=== PATIENT | female | born 1985 | race African-American/Black ===

== ENCOUNTER 2023-08-02 09:39 | Emergency (ER) | payer OTHER, SELFPAY ==
--- NOTE | ~2023-08-02 | XR_ITS ---
EXAMINATION: XR CHEST CLINICAL INFORMATION: Chest pain COMPARISON: None available. TECHNIQUE: Frontal view of the chest was obtained. FINDINGS: Lungs are well-inflated and clear. Trachea is midline in position. No interstitial disease, consolidation or mass. No pleural effusion or pneumothorax. Cardiac silhouette and pulmonary vessels are normal in size. The mediastinum and jovan have normal contour. The visualized bones and upper abdomen are unremarkable. XR/XR chest 1V IMPRESSION: Lungs have a normal appearance. No acute cardiopulmonary abnormality.
[2023-08-02 10:02] VITALS: BP 121/79; PULSE 63; RESP 16; TEMP 36.4; O2SAT 100; BMI 28.1
--- NOTE | 2023-08-02 10:06 | ECG_ITS ---
Test Reason : CHEST TIGHTNESS Blood Pressure : / mmHG Vent. Rate : 067 BPM Atrial Rate : 067 BPM P-R Int : 172 ms QRS Dur : 076 ms QT Int : 374 ms P-R-T Axes : 067 023 009 degrees QTc Int : 395 ms Normal sinus rhythm Normal ECG No previous ECGs available Referred By: Generic ED Physician Electronically Signed By:Payam Zavala
[2023-08-02 10:32] LABS: IDNOW Serial# 9DB6401D; Influenza A Negative (Negative); Influenza B2 Negative (Negative)
[2023-08-02 10:53] LABS: COVID-19 Test Negative (Negative); IDNOW Serial# 58CA691E
--- NOTE | 2023-08-02 12:08 | ED.GENADULT ---
HPI - General Adult General Chief complaint: Upper Respiratory Symptoms Stated complaint: cold like symptoms Time Seen by Provider: 08/02/23 12:10 Source: patient Mode of arrival: ambulatory Limitations: no limitations History of Present Illness HPI narrative: Patient is a 38 year old assigned female at with no reported medical history presenting to the emergency department today with a cough, headache, and sore throat. Patient states that over the last 1 week she has had a cough, headache, and sore throat. Patient denies any dizziness, lightheadedness, abdominal pain, nausea, vomiting, fever, chills, blurry vision, double vision, loss of vision, chest pain, difficulty breathing, shortness of breath, back pain, night sweats, pain with urination, increased urinary frequency, increased urinary urgency, blood in her urine or stool, syncope or a near syncopal episode, recent trauma or falls, bowel incontinence, bladder incontinence, bowel retention, bladder retention, or any other complaints at this time. Onset (ago): week(s) (1) Severity: mild Relieving factors: none Exacerbating factors: none Associated symptoms: cough Treatments prior to arrival: none Related Data Previous Rx's Medication Instructions Recorded benzonatate 100 mg capsule 100 mg PO BID PRN cough 7 days #14 08/02/23 caps doxycycline hyclate 100 mg tablet 100 mg PO BID 7 days #14 tabs 08/02/23 prednisone 20 mg tablet 20 mg PO DAILY 7 days #7 tabs 08/02/23 Allergies Allergy/AdvReac Type Severity Reaction Status Date / Time morphine Allergy Numbness Verified 08/02/23 10:05 Review of Systems Constitutional: Constitutional: Reports no additional constitutional complaints, Denies chills, Denies fever(s), Reports headache(s) and Denies night sweats Eyes: Eyes: Reports no additional eye complaints, Denies blurry vision, Denies change in vision, Denies diplopia, Denies eye discharge, Denies loss of vision and Denies eye pain ENT: Denies dizziness, Reports headache(s) and Reports sore throat Cardiovascular: Cardiovascular: Reports no additional cardiovascular complaints, Denies chest pain, Denies lightheadedness, Denies Loss of Consciousness and Denies dyspnea Respiratory: Respiratory: Reports no additional respiratory complaints, Reports cough and Denies dyspnea Gastrointestinal: Gastrointestinal: Reports no additional gastrointestinal complaints, Denies abdominal pain, Denies melena, Denies hematochezia, Denies change in bowel habits and Denies change in stool character Genitourinary: Genitourinary: Denies hematuria, Denies urinary frequency, Denies dysuria, Denies urinary incontinence, Denies urinary hesitancy and Denies urinary urgency Musculoskeletal: Musculoskeletal: Reports no additional musculoskeletal complaints, Denies numbness and Denies tingling Neurologic: Denies dizziness, Reports headache(s), Denies loss of vision, Denies numbness and Denies tingling Psychiatric: Psychiatric: Reports no additional psychiatric complaints Endocrine: Endocrine: Reports no additional endocrine complaints Hematologic/Lymphatic: Hematologic/Lymphatic: Reports no additional hematologic/lymphatic complaints Allergic/Immunologic: Allergic/Immunologic: Reports no additional allergic/immunologic complaints PMFSH Past Medical History Attestation statement: The following information was validated with the patient. Source: old records reviewed and nursing notes reviewed Social History Social History Advance Directives: No Advance Directives Information Provided: No Physical Exam ED Vital Signs: Vital Signs - 24 hr 08/02/23 10:02 Temperature 97.5 F Pulse Rate 63 Respiratory Rate 16 Blood Pressure 121/79 Pulse Oximetry 100 Oxygen Delivery Method Room Air BMI result Body Mass Index 28.1 Const General: cooperative, no acute distress, alert and awake Nutritional Appearance: well nourished Orientation/consciousness: patient oriented x3 Limitations: no limitations HENMT Head: Yes normal to inspection and Yes atraumatic Ears: hearing grossly normal bilaterally and external ears normal General nose exam: Normal external nose present, no nasal discharge noted and no epistaxis Face and sinus: Yes normal facial exam, No abrasion and No laceration Mouth: Normal oral and palatal mucosa present, no drooling and no muffled voice Eyes General: appearance normal, both eyes and all related structures Periorbital: periorbital findings normal Eyelids: Yes eyelids normal Conjunctivae: conjunctivae normal Pupils: Equal, round and reactive pupils present EOM: EOMs intact bilaterally Neck Neck: Yes normal visual inspection, Yes full ROM and Yes no lymphadenopathy Chest Chest palpation & inspection: normal inspection of the chest Resp Effort & Inspection: normal respiratory effort and able to speak in complete sentences Auscultation: clear to auscultation bilaterally GI Inspection: Yes normal to inspection Neuro General: patient oriented x3 and moves all extremities Cranial nerves: Yes Equal, round and reactive pupils present Cognition (Neuro): normal cognition Motor exam (neuro): 5/5 motor strength present throughout Sensory Exam: Normal double simultaneous stimulation for sensation Coordination: [id number] test normal Extrem General: Yes normal to inspection, Yes full ROM and Yes capillary refill normal Psych Appearance: grossly normal Mental Status: mental status grossly normal Affect: normal affect Attitude: cooperative Thought process: Normal thought process present Thought content: Normal thought content present Insight: Good insight present (Psych) Medical Decision Making Medical Decision Making [facility] Narrative: Patient is a 38 year old assigned female at with no reported medical history presenting to the emergency department today with a headache, cough, and sore throat. Patient's physical exam was unremarkable. Patient's chest x-ray showed no acute process. Patient's EKG was unremarkable. Patient's COVID-19 and influenza swabs were negative. I explained my physical exam findings as well as all test results to the patient. I answered all questions asked by the patient. I stressed the importance of the patient taking her medication as prescribed. I stressed the importance of the patient following up with her primary care provider. I stressed the importance of the patient returning to the emergency department immediately if her symptoms were to worsen or if she were to develop any dizziness, shortness of breath, difficulty breathing, chest pain, blurry vision, loss of vision, nausea, vomiting, abdominal pain, fever, chills, back pain, or any other complaints. Patient verbalized agreement and understanding with this treatment plan and discharge. Differential Diagnosis Differential Diagnoses: The differential diagnosis associated with the presentation includes Cough URI Walking pneumonia COVID-19 Influenza Admission/Observation Consideration of admission/observation: Escalation of care including admission/observation considered Patient would have been admitted to the hospital had her work up had any findings where hospital admission was appropriate and her clinical presentation warranted hospital admission. Lab Data [facility] Lab Attestation statement: I reviewed the patient's lab results. My interpretation of these results are in the [facility] Rationale portion of this note. Labs: Lab Results 08/02/23 Range/Units 10:10 COVID-19 (SOCO) Negative (Negative) COVID-19 Clin Com See Note Influenza Type A (HUGO) Negative (Negative) Influenza Type B (HUGO) Negative (Negative) Influenza A & B Note See Note Independent Interpretation I performed an independent interpretation of an: EKG and Plain X-Ray Interpretation: My interpretation is in agreement with the radiologist's impression of this imaging study. EXAMINATION: XR CHEST CLINICAL INFORMATION: Chest pain COMPARISON: None available. TECHNIQUE: Frontal view of the chest was obtained. FINDINGS: Lungs are well-inflated and clear. Trachea is midline in position. No interstitial disease, consolidation or mass. No pleural effusion or pneumothorax. Cardiac silhouette and pulmonary vessels are normal in size. The mediastinum and jovan have normal contour. The visualized bones and upper abdomen are unremarkable. XR/XR chest 1V IMPRESSION: Lungs have a normal appearance. No acute cardiopulmonary abnormality. Dictated By: Deondre Lozano MD Signed By: Electronically signed by Deondre Lozano MD 08/02/23 1136 Vent. Rate: 067 BPM Atrial Rate: 067 BPM P-R Int: 172 ms QRS Dur: 076 ms QT Int: 374 ms P-R-T Axes: 067 023 009 degrees QTc Int: 395 ms Normal sinus rhythm Normal ECG No previous ECGs available DD/ 1015 Radiology Impression Discussion of test interpretation with radiology: I have reviewed the radiologist's reading. Prescription Management I considered prescription management with: Antibiotic (patient prescribed an antibiotic for possible walking pneumonia) Discharge Plan Discharge Clinical Impression: Upper respiratory infection Patient Disposition: Home, Self-Care Instructions: Upper Respiratory Infection (DC) Additional Instructions: Follow up with your primary care provider. Return to the emergency department immediately if your symptoms worsen or if you develop any dizziness, shortness of breath, difficulty breathing, chest pain, blurry vision, loss of vision, nausea, vomiting, abdominal pain, fever, chills, back pain, or any other complaints. Prescriptions: New prednisone 20 mg tablet 20 mg PO DAILY 7 Days Qty: 7 0RF benzonatate 100 mg capsule 100 mg PO BID PRN (Reason: cough) 7 Days Qty: 14 0RF doxycycline hyclate 100 mg tablet 100 mg PO BID 7 Days Qty: 14 0RF [place] [facility] [place] [facility] [place] (Call to establish and follow up with a primary care provider. If you already have a primary care provider, please follow up with them.) [facility] [place] [facility] [place] (Call to establish and follow up with a primary care provider. If you already have a primary care provider, please follow up with them.) [facility] [place] [facility] [[place] Group] (Call to establish and follow up with a primary care provider. If you already have a primary care provider, please follow up with them.) Stand Alone Forms: Work/School Release Interventions: ED Discharge Assessment Last Done: 08/02/23 12:26 Discharge Date/Time: 08/02/23 12:26 Print Language: Cook Islander
--- OUTSIDE RECORDS SUMMARY | 2023-08-02 12:18 | XMS_ITS | Continuity of Care Document ---
Author Name Unknown Organization [facility] Address [address] [place] [address]- Care Team Providers Care Clock Repairer Name Role Phone Not on Staff, PCP Primary Care Physician Unavail able Encounter [facility] Date(s): 04/15/22 - 04/15/[address] [address]- Encounter Diagnosis Acute pharyngitis(Final) - 04/15/22 Discharge Disposition: A-D/C Home Attending Physician: Barry Arthur MD Admitting Physician: Barry Arthur MD Referring Physician: Not on Staff, Referring MD Allergies, Adverse Reactions, Alerts No Known Medication Allergies Medications levothyroxine 0.1 mg oral tablet 1 tablet = 100 mcg, By Mouth, Daily, 0 Refills, Maintenance, 04/15/22 10:17:00 EDT, Partial fill upon patient request if the prescription is for a schedule II opioid drug. Start Date: 04/15/22 Status: Ordered Problem List Condition Confirmation Course Effective Dates Status Health St [facility] Informant History of thyroid cancer Confirmed Active Procedures Procedure Date Related Diagnosis Body Site Status Complete thyroidectomy Co mpleted Results Orders for Microbiology Reports Name Date Group A Strep Screen and Culture 2 Microbiology Reports TEST:Group A Strep Screen and Culture STATUS:Unauthenticated BODY SITE: SOURCE:THROAT COLLECTED DATE/TIME:04/15/22 10:21 AM Group A Strep Screen and Culture SPECIMEN DESCRIPTION : THROAT SWAB SPECIAL REQUESTS : NONE DIRECT EXAM : RAPID GROUP A RESULT IS NEGATIVE, REFER TO CULTURE RESULT. REPORT STATUS : PRELIMINARY REPORT Vital Signs Most recent to oldest [Reference Range]: 1 2 Height 168 cm (04/15/22 10:16 AM) 168 cm (04/15/22 10:08 AM) Weight 81.9 kg (04/15/22 10:16 AM) 81.9 kg (04/15/22 10:08 AM) Oxygen Saturation [94-100 %] 100 % (04/15/22 10:08 AM) Pulse Rate [55-90 bpm] 72 bpm (04/15/22 10:08 AM) Body Mass Index [18.5-24.99 kg/m2] 29.02 kg/m2 *H* (04/15/22 10:08 AM) Blood Pressure [90-138/55-84 mm Hg] 124/ 69mm Hg (04/15/22 10:08 AM) Respiratory Rate [16-30 br/min] 18 br/mi n (04/15/22 10:08 AM) Temperature [96.8-100.4 DegF] 97.8 DegF (04/15/22 10:08 AM) Mode of Delivery (Oxygen) Room air (04/15/22 10:08 AM) Blood pressure sites Arm, left (04/15/22 10:08 AM) Temperature Route Temporal (04/15/22 10:08 AM) Dry Weight 81.9 kg (04/15/22 10:16 AM) 81.9 kg (04/15/22 10:08 AM) Weight Obtained Via Standing scale (04/15/22 10:08 AM) Patient Care team information Personnel Name: Not on Staff, PCP
--- OUTSIDE RECORDS SUMMARY | 2023-08-02 12:18 | XMS_ITS | Continuity of Care Document ---
Author Name Unknown Organization [facility] Address [address] [place] [address]- Care Team Providers Care Senior Information Developer Name Role Phone Not on Staff, PCP Primary Care Physician Unavail able Encounter [facility] Date(s): 04/19/23 - 04/19/[address] [address]- Encounter Diagnosis Upper respiratory tract infection(Final) - 04/19/23 Discharge Disposition: A-D/C Home Attending Physician: Tien Hinds MD Admitting Physician: Tien Hinds MD Referring Physician: Not on Staff, Referring MD Allergies, Adverse Reactions, Alerts No Known Medication Allergies Medications ibuprofen 600 mg oral tablet 600 mg, 1, tablet, By Mouth, 4 times a day, PRN, # 40 tablet, Refills 0, Tot. Refills 0, Acute 04/30/23 12:00:00 EST, for pain, 04/19/23 11:58:00 EDT, Route to Pharmacy Electronically, [facility]/pharmacy #[id number], Partial fill upon patient request if the presc... Start Date: 04/19/23 Stop Date: 04/30/23 Status: Ordered levothyroxine 0.1 mg oral tablet 1 tablet = 100 mcg, By Mouth, Daily, 0 Refills, Maintenance, 04/15/22 10:17:00 EDT, Partial fill upon patient request if the prescription is for a schedule II opioid drug. Start Date: 04/15/22 Status: Ordered Problem List Condition Confirmation Course Effective Dates Status Health St atus Informant History of thyroid cancer Confirmed Active Results Orders for Microbiology Reports Name Date Group A Strep Screen and Culture 3 Microbiology Reports TEST:Group A Strep Screen and Culture STATUS:Unauthenticated BODY SITE: SOURCE:THROAT COLLECTED DATE/TIME:04/19/23 10:17 AM Group A Strep Screen and Culture SPECIMEN DESCRIPTION : THROAT SWAB SPECIAL REQUESTS : NONE DIRECT EXAM : RAPID GROUP A RESULT IS NEGATIVE, REFER TO CULTURE RESULT. REPORT STATUS : PRELIMINARY REPORT Radiology Reports * Exam Date Time Procedure Performing Provider Status 04/19/23 11:40 AM Chest 2 Views Frontal and Lat Elizabeth Webster; Auth (Verified) Notes: (Chest 2 Views Frontal and Lat) Reason For Exam: Shortness of Breath RESULT: Chest 2 Views Frontal and Lat Examination: Chest performed on 04/19/2020.. History: Productive cough. Findings: Frontal and lateral views of the chest are submitted without comparison. The cardiac and mediastinal silhouettes are within normal limits. The lungs are clear. Scoliosis within the spine is noted. Impression: There is no acute cardiopulmonary disease. WSN: [id number] Ordering Physician: Amanda Ponce Dictated By: Monique De La Rosa MD Dictated Date/Time: 04/19/23 11:43 a Reviewed By: Monique De La Rosa MD Signed By: Monique De La Rosa MD Signed Date/Time: 04/19/23 11:43 am Transcribed By: KERRY Transcribed Date/Time: 04/19/23 11:43 am Vital Signs Most recent to oldest [Reference Range]: 1 Height 167 cm (04/19/23 9:50 AM) Weight 76.7 kg (04/19/23 9:50 AM) Oxygen Saturation [94-100 %] 100 % (04/19/23 9:50 AM) Pulse Rate [55-90 bpm] 75 bpm (04/19/23 9:50 AM) Blood Pressure [90-138/55-84 mm Hg] 115/ 82mm Hg (04/19/23 9:50 AM) Respiratory Rate [16-30 br/min] 18 br/mi n (04/19/23 9:50 AM) Temperature [96.8-100.4 DegF] 98.3 DegF (04/19/23 9:50 AM) Mode of Delivery (Oxygen) Room air (04/19/23 9:50 AM) Temperature Route Temporal (04/19/23 9:50 AM) Dry Weight 76.7 kg (04/19/23 9:50 AM) Note * Amanda Humphries: PERFORM Event Display: Patient Education Leaflets Authored Date: [id number] Viral Upper Respiratory Illness (Adult) ?? [id number] Viral Upper Respiratory Illness (Adult) You have a viral upper respiratory illness (URI), which is another term for the common cold. This viral illness is contagious during the first few days. It's spread through the air by coughing and sneezing. It may also be spread by direct contact (touching the sick person and then touching your owneyes, nose, or mouth). Frequent handwashing will lower risk of spread. Most viral illnesses go awaywithin 7 to 10 days with rest and simple home remedies. Sometimes the illness may last for several weeks. Antibiotics will not kill a virus, and they are generally not prescribed for this condition. Home care ??? If symptoms are severe, rest at home for the first 2 to 3 days or as advised. When you resume activity, don't let yourself get too tired. ??? Don't smoke. If you need help stopping, talk with your healthcare provider. ??? Stay away from cigarette smoke (yours or others???). ??? You may use acetaminophen or ibuprofen to control pain and fever, unless another medicine was prescribed.??Talk with your provider before taking these medicines if you have chronic liver or kidney disease. Also talk with your provider if you've had a stomach ulcer or digestive bleeding, or you take blood-thinning medicines. Never give aspirin to anyone under 18 years of age who is ill with a viral infection or fever. It may cause severe liver or brain damage, or even . ??? Your appetite may be poor, so a light diet is OK. Stay well hydrated by drinking 6 to 8 glasses of fluids per day (water, soft drinks, juices, tea, or soup). Extra fluids will help loosen secretions in the nose and lungs. ??? Qxcj-taq-ovzytgu cold medicines will not shorten the length of time you???re sick. But they may be helpful for cough, sore throat, and nasal and sinus congestion. If you take prescription medicines, ask your healthcare provider or pharmacist which gsbt-jrd-esrnljl medicines are safe to use. Don'tuse decongestants, if you have high blood pressure, without first talking with your healthcare provider. ??? If you are taking other prescribed medicine, contact your healthcare provider before taking any skqf-kmf-kzsqjip medicines. ?? Follow-up care Follow up with your healthcare provider, or as advised. ?? When to seek medical advice Call your healthcare provider right away if any of these occur: ??? Cough with lots of colored sputum (mucus) ??? Severe headache; face, neck, or ear pain ??? Difficulty??swallowing??due to throat pain ??? Fever of 100.4??F (38??C) or higher , or as directed by your healthcare provider ?? Call 911 Call 911 if any of these occur: ??? Chest pain, shortness of breath, wheezing, or difficulty breathing ??? Coughing up blood ??? Very severe pain with swallowing, especially if it goes along with a muffled voice ??? Feeling of doom ??? Feeling dizzy, faint, or confused ??? Lips or skin is blue, purple or berry in color ?? Last Reviewed Date: 2021 ?? [id number] [employer]. All rights reserved. This information is not intended as a substitute for professional medical care. Always follow your healthcare professional's instructions. ?? Patient Care team information Care Team Personnel Name: Not on Staff, PCP Position: [facility] Physician (General Medicine) Member Role: PCP Name: Lenny Hinojosa RN Position: [facility] ED RN W/OE and Tasks Member Role: Patient Care Provider Name: Amanda Humphries Position: [facility] Associate Professional Member Role: Physician Building Contractor Address: Address: [address] [place] [address] [place] [address]- Name: Tien Hinds MD Position: [facility] ED Medicine MD Member Role: Admitting Physician Address: Address: [address] [place] [address] [place] [address]- [place]
== END 2023-08-02 12:26 | disposition home or self-care (01) ==
PROVIDERS: Emergency Provider Emergency Medicine
DX: J06.9 Acute upper respiratory infection, unspecified (principal); R07.89 Other chest pain; R05.9 Cough, unspecified; R51.9 Headache, unspecified; J02.9 Acute pharyngitis, unspecified; Z11.52 Encounter for screening for COVID-19
CPT/HCPCS: 71045; 87502; 87635; 93005; 99283

== ENCOUNTER → 2023-08-02 10:06 | Outpatient (BNV) | payer OTHER, SELFPAY | PROVIDERS: Emergency Provider Emergency Medicine; Visit Provider Internal Medicine Cardiovascular Disease | DX: R07.9 Chest pain, unspecified (principal) | CPT/HCPCS: 93010 ==